=== PATIENT | male | born 1990 | race Caucasian/White ===

== ENCOUNTER 2022-04-06 02:21 | Emergency (ER) | payer BC, SELFPAY ==
[2022-04-06 02:23] VITALS: BP 134/58; PULSE 88; RESP 16; TEMP 36.8; O2SAT 100; BMI 28.3
--- NOTE | 2022-04-06 03:12 | HMH.EDGENADL ---
Discharge Plan Disposition Patient Disposition: Home, Self-Care Prescriptions Prescriptions: New prednisone [prednisone] 20 mg tablet 20 mg PO BID Qty: 10 0RF Referrals Follow up/Referrals: Provider,Referral, MD [Primary Care Provider] - See instructions Clinical Impressions Clinical Impression: Lumbar radicular syndrome Instructions Patient Instructions: DI for Lumbar Radiculopathy Discharge ED Provider: oKko Nelson General Adult HPI General Chief complaint: PAIN Stated complaint: Lower Right side pain Time Seen by Provider: 04/06/22 03:12 Mode of Arrival: Wheelchair Source of Information: Patient and Medical Record Limitations: No Limitations Description of Symptoms (Recalled from ER Triage Doc. by RN): pt has sciatic pain that he has been treated for at work. when the pt got home from work he got out of his truck and his lower left back popped and pain shot through his leg History of Present Illness HPI narrative: pt has hx of ongoing lumbar radicular pain - being treated at [facility] - pt with sudden pain back and rt lower leg tonight - no cauda equina sx Onset (ago): hour(s) Location: back Radiation: extremity Severity: moderate Quality: sharp Consistency: intermittent Associated symptoms: denies other symptoms Treatments prior to arrival: NSAID Related Data Previous Rx's Medication Instructions Recorded prednisone 20 mg tablet 20 mg PO BID #10 tabs 04/06/22 Allergies Allergy/AdvReac Type Severity Reaction Status Date / Time No Known Allergies Allergy Verified 04/06/22 03:09 [facility] Social History Smoking Status: Never smoker alcohol intake: never current occupational status: employed Travel in the last 8 weeks: None ROS Obtained: Yes All systems reviewed & no additional complaints except as documented Physical Exam General General appearance: alert Head Head exam: normocephalic Eye Eye exam: Present PERRL and EOMI ENT ENT exam: Present mucous membranes moist Neck Neck exam: Present trachea midline Respiratory Respiratory exam: Absent respiratory distress Cardiovascular Cardiovascular exam: Present regular rate Extremities Exam Extremities exam: Absent edema Back Exam Back exam: Present tenderness and straight leg raise (R); Absent vertebral tenderness Neurological Exam Neurological exam: Present alert, oriented X3 and CN II-XII intact Psychiatric Psychiatric exam: Present normal affect Skin Skin exam: Absent rash Medical Decision Making Medical Records Medical records reviewed: Yes I reviewed the patient's medical records. [place] Inquiry Pt receiving controlled substance: No Vital Signs: 04/06/22 02:23 Temperature 98.3 F Temperature Source Oral Pulse Rate [Left] 88 Respiratory Rate 16 Blood Pressure [Right Arm] 134/58 L Blood Pressure Mean [Right Arm] 83 02 Sat by Pulse Oximetry 100 Oxygen Delivery Method Room Air Lab Data Lab results reviewed: Yes I reviewed the patient's lab results. Orders (Tests/Meds): ED MEDICATIONS Generic Name Dose Route Start Last Admin Trade Name Freq PRN Reason Stop Dose Admin Dexamethasone Sodium Phosphate 8 mg 04/06/22 03:15 Dexamethasone 4mg/Ml 5ml Mdv IM 05/06/22 03:14 Q6H MOHINI Discontinued Medications Generic Name Dose Route Start Last Admin Trade Name Freq PRN Reason Stop Dose Admin Ketorolac Tromethamine 60 mg 04/06/22 03:10 Ketorolac 60mg/2ml Vial IM 04/06/22 03:11 ONCE ONE Medical Decision Narrative: pt with acute exacerbation of l/s disc dis - no cauda equina sx- Critical Care Time Critical Care Time Critical Care Time: No Attestation: On 04/06/22, the high probability of a clinically significant, sudden or life threatening deterioration of the following system(s) required my full and direct attention, intervention and personal management. The time I documented below is in addition to time spent performing reported procedures but includes the fo
[2022-04-06 03:42] VITALS: BP 127/71; PULSE 81; RESP 16; TEMP 36.8; O2SAT 100
[2022-04-06 03:49] VITALS: BP 122/56; PULSE 88; RESP 16; TEMP 37.1; O2SAT 98
== END 2022-04-06 03:44 | disposition home or self-care (01) ==
PROVIDERS: Emergency Provider Emergency Medicine
DX: M54.16 Radiculopathy, lumbar region (principal)
CPT/HCPCS: 96372; 99283

== ENCOUNTER → 2023-03-05 11:44 | Outpatient (CLI) | payer BC, SELFPAY ==
--- NOTE | 2023-03-05 11:51 | XR_ITS ---
FINAL REPORT TECHNIQUE: 5 views CLINICAL HISTORY: low back pain, right leg numbness, pain in right hip COMPARISON: None FINDINGS: There is no fracture present. There is no malalignment. There are no significant degenerative changes. IMPRESSION: No acute process. Reviewed, Interpreted and Dictated by Barrie Oliveira MD Transcribed by Ashlyn Casper Authenticated and [facility]
== END ==
PROVIDERS: PCP Nurse Practitioner Family; Visit Provider Nurse Practitioner Family
DX: M54.16 Radiculopathy, lumbar region (principal)
CPT/HCPCS: 72110

== ENCOUNTER → 2023-03-14 09:58 | Outpatient (CLI) | payer BC, SELFPAY ==
--- NOTE | 2023-03-14 10:01 | MR_ITS ---
FINAL REPORT CLINICAL HISTORY: lumbar spine pain with radiculopathy down right leg 17 ml prohance COMPARISON: None FINDINGS: Multiplanar MR imaging of the lumbar spine was performed without and with contrast. On the sagittal T2-weighted images, abnormal decreased signal is seen at L4-5 and L5-S1. There is moderate loss of height at these levels. The vertebral alignment is normal. There is no evidence of fracture. The conus is seen at approximately the L1 level and has an unremarkable appearance. L1-2: No significant canal stenosis or neuroforaminal narrowing is seen. L2-3: No significant canal stenosis or neuroforaminal narrowing is seen. L3-4: No significant canal stenosis or neuroforaminal narrowing is seen. L4-5: Mild diffuse disc bulge. Right posterior lateral disc protrusion with associated annular tear. Moderate right neuroforaminal narrowing. L5-S1: Right paracentral disc protrusion. Moderate compromise right lateral recess. No abnormal contrast enhancement is identified. IMPRESSION: Right posterolateral disc protrusion at L4-5 with annular tear and moderate right neuroforaminal compromise. Right paracentral protrusion at L5-S1 with compromise of the right lateral recess. Reviewed, Interpreted and Dictated by Barrie Oliveira MD Transcribed by Theodora Bolton Authenticated and [facility]
== END ==
LOC: RAD 10:01
PROVIDERS: PCP Nurse Practitioner Family; Visit Provider Nurse Practitioner Family
DX: M54.16 Radiculopathy, lumbar region (principal)
CPT/HCPCS: 72158; 76376; A9576

== ENCOUNTER 2024-04-20 07:56 | Observation (INO) | payer BC, SELFPAY ==
[2024-04-20] VITALS (17 sets, daily range): BP systolic 109–137; BP diastolic 56–88; PULSE 66–94; RESP 15–20; TEMP 36.7–37.1; O2SAT 97–100; BMI 26.6; BMI 26.2
--- NOTE | 2024-04-20 08:12 | PC.NURSE ---
Dr. Barber at BS for pt eval
[2024-04-20] MEDS: LACTATED RINGERS 1000ML 1,000 ML 999 ML IV (08:25)
[2024-04-20] MEDS: PANTOPRAZOLE 40MG VIAL 40 MG IV (08:26)
[2024-04-20] MEDS: ONDANSETRON 4MG/2ML VIAL 4 MG IV ×2 (08:26→21:18)
--- NOTE | 2024-04-20 08:28 | ED_ITS ---
Discharge Plan Disposition Patient Disposition: Admitted Chief Complaint: GI Bleed Prescriptions Prescriptions: No Action acetaminophen [Tylenol Extra Strength] 500 mg tablet 500 mg PO DAILY cyclobenzaprine 10 mg tablet 10 mg PO HS PRN (Reason: muscle spasm) Qty: 30 0RF Referrals Follow up/Referrals: Provider,Referral, MD [Primary Care Provider] - See instructions Clinical Impressions Clinical Impression: Upper gastrointestinal hemorrhage Instructions Patient Instructions: DI for Gastrointestinal Bleeding Print Language Print Language: Polish Discharge ED Provider: Keon Barber General Adult HPI General Chief complaint: GI Bleed Stated complaint: blood in stool headache stomach cramps, ulcer pa Time Seen by Provider: 04/20/24 08:04 Mode of Arrival: Ambulatory Source of Information: Patient Limitations: No Limitations Description of Symptoms (Recalled from ER Triage Doc. by RN): Patient presents to ED with bloody stool for over 1 week. Patient reports he has ulcers in his abdomen that he was dx with in 2018. Patient reports nausea, headache, and stomach cramps. Patient reports pain 6/10 at this time. History of Present Illness HPI narrative: This is a 33-year-old male with a past medical history of peptic ulcer disease complicated by perforation and surgical repair in 2018 who presents with concern for GI bleeding. States that he has had cramping abdominal pain for the last week that has been progressively worsening. States that he started out having melanic stools that have progressed to bright red blood per rectum. States that he believes that he is having another ulcer bleed. States he last followed up with GI 2 years ago and got a colonoscopy/EGD and was noted to have an ulcer. Started on Prilosec around that time however discontinued it and then resumed 2 weeks ago whenever symptoms began. Reports nausea and headache as well. Denies vomiting. Related Data Home Medications ?Medication ?Instructions ?Recorded ?Confirmed acetaminophen 500 mg tablet 500 mg PO DAILY 03/04/23 03/04/23 (Tylenol Extra Strength) Previous Rx's ?Medication ?Instructions ?Recorded cyclobenzaprine 10 mg tablet 10 mg PO HS PRN muscle spasm #30 03/04/23 tabs Allergies Allergy/AdvReac Type Severity Reaction Status Date / Time No Known Allergies Allergy Verified 03/04/23 15:41 [facility] Disclaimer: The information contained in this section may have been updated after the patient was seen, as this information can be updated by other users. Medical History (Updated 04/20/24 @ 09:41 by Keon Barber MD) Ulcer Lumbar radicular syndrome Family History (Updated 03/04/23 @ 15:50 by Urmila Abad CMA) Mother Cancer Hypertension Arthritis Father Hypertension Cancer Heart disease Grandmother Cancer Social History Smoking Status: Never smoker alcohol intake: never current occupational status: employed Travel in the last 8 weeks: None Other Medical History Have you received the Pneumonia Vaccine: No ROS Obtained: Yes All systems reviewed & no additional complaints except as documented Physical Exam General General appearance: alert and in no apparent distress Eye Eye exam: Present normal appearance, PERRL and EOMI Respiratory Respiratory exam: Present normal lung sounds bilaterally; Absent respiratory distress Cardiovascular Cardiovascular exam: Present regular rate and normal rhythm Abdominal Exam Abdominal exam: Present soft and distention; Absent tenderness, guarding or rebound Comment: Midline surgical incision Extremities Exam Extremities exam: Present normal inspection Neurological Exam Neurological exam: Present alert and oriented X3 Skin Skin exam: Present warm and dry Medical Decision Making Medical Records Medical records reviewed: Yes I reviewed the patient's medical records. Screening: Per USPSTF and CDC recommendations, given the prevalence of disease in our region, it is our hospital?s policy to screen for HIV and viral Hepatitis for all patients aged 18 and over and those with ongoing risk factors. [place] Inquiry Pt receiving controlled substance: No Vital Signs: 04/20/24 07:58 04/20/24 08:31 Temperature 98.8 F Temperature Source Oral Pulse Rate 91 H Pulse Rate [Right Brachial] 94 H Respiratory Rate 20 Blood Pressure 109/73 L Blood Pressure [Right Arm] 137/88 Blood Pressure Mean [Right Arm] 104 Blood Pressure Source [Right Arm] Automatic Cuff Blood Pressure Position [Right Arm] Supine 02 Sat by Pulse Oximetry 99 97 Oxygen Delivery Method Room Air Room Air Lab Data Lab Results 04/20/24 08:09: WBC 10.6, RBC 5.46, Hgb 16.1, Hct 47.5, MCV 87.0, MCH 29.5, MCHC 33.9, RDW 13.7, Plt Count 265, MPV 7.3 L, Neut % (Auto) 75.3, Lymph % (Auto) 17.2, [place] % (Auto) 6.4, Eos % (Auto) 0.9, Baso % (Auto) 0.3, Neut # (Auto) 8.0 H, Lymph # (Auto) 1.8, [place] # (Auto) 0.7, Eos # (Auto) 0.1, Baso # (Auto) 0.0, PT 11.1, INR 0.99, Sodium 137, Potassium 3.9, Chloride 95 L, Carbon Dioxide 36 H , Anion Gap 9.9, BUN 19, Creatinine 1.00, Estimated Creat Clear 117, Estimated GFR 87, Est GFR ( Amer) 105, Glucose 103 H, Calcium 9.7, Total Bilirubin 0.7, AST 27, ALT 21, Alkaline Phosphatase 62, Total Protein 7.4, Albumin 4.6, Globulin 2.8, Albumin/Globulin Ratio 1.6, Lipase 68 04/20/24 08:22: Lactate 0.6 L 04/20/24 08:09 04/20/24 08:09 Orders (Tests/Meds): ED MEDICATIONS Generic Name Dose Route Start Last Admin Trade Name Freq PRN Reason Stop Dose Admin Sodium Chloride 10 ml 04/20/24 08:12 Sodium Chloride 0.9% 10ml Flush Syringe IV 05/20/24 08:11 NEEDED PRN Maintain IV Site Discontinued Medications Generic Name Dose Route Start Last Admin Trade Name Freq PRN Reason Stop Dose Admin Pantoprazole Sodium 40 mg/ 100 mls @ 100 mls/hr 04/20/24 08:19 04/20/24 08:26 Sodium Chloride IV 04/20/24 09:18 Not Given ONCE ONE Lactated Ringer's 1,000 mls @ 999 mls/hr 04/20/24 08:19 04/20/24 08:25 Lactated Ringer's 1000 Ml Bag IV 04/20/24 09:19 999 mls/hr .Q1H1M ONE Administration Ondansetron HCl 4 mg 04/20/24 08:19 04/20/24 08:26 Ondansetron 4mg/2ml Vial IV 04/20/24 08:20 4 mg ONCE ONE Administration Pantoprazole Sodium 40 mg 04/20/24 08:30 04/20/24 08:26 Pantoprazole 40mg Vial IV 04/20/24 08:31 40 mg ONCE ONE Administration ORDERS Category Date Time Status CBC w/Auto Diff [Complete Blood Count Auto Diff] Stat Lab 04/20/24 08:09 Completed CMP [Comprehensive Metabolic Panel] Stat Lab 04/20/24 08:09 Completed HIV (1&2) Antibody Rapid Stat Lab 04/20/24 08:09 Received Hep C Ab with Reflex to RNA Stat Lab 04/20/24 08:09 Received Lactic Acid Stat Lab 04/20/24 08:22 Completed Lipase Stat Lab 04/20/24 08:09 Completed PT/INR [Prothrombin Time INR] Stat Lab 04/20/24 08:09 Completed Medical Decision Narrative: In summary, this 33-year-old male with a past medical history of peptic ulcer disease complicated by perforation in 2018 s/p surgical repair presents to the emergency department today with abdominal pain and bloody stools. On initial evaluation patient is afebrile, nontachycardic, normotensive, no acute distress with a benign abdominal exam. Differential diagnosis includes but is not limited to peptic ulcer disease, diverticulitis, diverticulosis, perforation. Low clinical concern for perforation given benign abdominal exam. Based on these concerns, I ordered CBC, CMP, PT/INR, lipase, lactate. Patient received Protonix and Zofran with 1 L of lactated Ringer's for treatment. Labs personally reviewed demonstrate normal hemoglobin, normal BUN, normal lipase and lactate. GBS score 4. I had an interactive discussion with GI who wished to perform EGD today. Discussed this with hospitalist who was agreed with admission and scope. Patient n.p.o. since last night. HDS in ED w/ no witnessed GIB. Critical Care Critical Care Time Critical Care Time: No
[2024-04-20 08:30] LABS: Albumin Level 4.6 g/dl (3.5-5.0); Basophils % 0.3 % (0.1-2.0); Chloride 95 mmol/L (98-107); Eosinophils # 0.1 K/mm3 (0.0-0.4); Eosinophils % 0.9 % (0.1-12.0); Hematocrit 47.5 % (42.0-52.0); Hemoglobin 16.1 g/dL (14.1-18.0); Lymphocytes # 1.8 K/mm3 (0.7-4.5); Lymphocytes % 17.2 % (10-50); Mean Corpuscular HGB Conc 33.9 g/dL (31.8-35.4); Mean Corpuscular Hemoglobin 29.5 pg (27.0-31.2); Mean Platelet Volume 7.3 fl (7.4-10.4); Monocytes # 0.7 K/mm3 (0.1-1.0); Monocytes % 6.4 % (1.7-9.3); Neutrophils % 75.3 % (37.0-80.0); Platelet Count 265 K/mm3 (142-424); Potassium 3.9 mmoL/L (3.5-5.1); Red Blood Count 5.46 M/mm3 (4.60-6.20); Red Cell Distribution Width 13.7 % (11.5-17.5); Sodium 137 mmol/L (136-145); White Blood Count 10.6 K/mm3 (4.8-10.8)
[2024-04-20 08:33] LABS: Alanine Aminotransferase 21 U/L (12-78); Albumin/Globulin Ratio 1.6 (1.1-1.8); Alkaline Phosphatase 62 U/L (38-126); Anion Gap 9.9 mEq/L (5-15); Aspartate Amino Transferase 27 U/L (17-59); Bilirubin,Total 0.7 mg/dl (0.2-1.3); Blood Urea Nitrogen 19 mg/dl (9-20); Calcium 9.7 mg/dl (8.4-10.2); Carbon Dioxide 36 mmol/L (22.0-30.0); Creatinine Clearance Estimated 117 mL/min (50-200); Estimated Glomerular Filt Rate 87 ml/min (>60); GFR (African American) 105 ML/MIN (>60); Globulin 2.8 g/dL (1.3-3.2); Glucose 103 mg/dl (74-100); Lipase 68 U/L (23-300); Total Protein,Serum 7.4 g/dl (6.3-8.2)
[2024-04-20 08:35] LABS: INR 0.99 (0.9-1.1); Prothrombin Time 11.1 seconds (10.1-12.5)
[2024-04-20 08:58] LABS: Lactic Acid 0.6 mmol/L (0.7-2.1)
--- NOTE | 2024-04-20 09:11 | PC.NURSE ---
NOTIFIED GI OF CONSULT
--- NOTE | 2024-04-20 09:15 | PC.NURSE ---
Dr. Barber speaking with GI
--- NOTE | 2024-04-20 09:35 | PC.NURSE ---
Dr. Barber at bedside for pt update
--- NOTE | 2024-04-20 09:35 | PC.NURSE ---
DR PARK AT BEDSIDE TO UPDATE PT
--- NOTE | 2024-04-20 09:37 | PC.NURSE ---
DR PARK SPEAKING WITH HOSPITALIST
--- NOTE | 2024-04-20 10:10 | P.PNANES_ITS ---
[facility] Disclaimer: The information contained in this section may have been updated after the patient was seen, as this information can be updated by other users. Medical History (Updated 04/20/24 @ 09:41 by Keon Barber MD) Ulcer Lumbar radicular syndrome Family History (Updated 03/04/23 @ 15:50 by Urmila Abad CMA) Mother Cancer Hypertension Arthritis Father Hypertension Cancer Heart disease Grandmother Cancer Social History Smoking Status: Never smoker alcohol intake: never substance use type: denies use current occupational status: employed Travel in the last 8 weeks: None [facility] Anesthesia Checklist Patient Identification Patient Identification: Arm Band Structural Data Admitted From: Home Planned Operative Procedure/s: EGD Consent for Planned Operative Procedure(s) Verified: Yes Verified Documents: Surgical Consent and History and Physical NPO Status Verified Time NPO: 00:00 Additional verifications Anesthesia Reactions: No Airway Assessment Mallampati Score:: Class II C-Spine Mobility Assessed: Yes TMJ Mobility Assessed: Yes Dentition: Good Dentition Neurological Assessment Level of Consciousness: Awake, Alert and Appropriate Anesthesia Plan Anesthesia Risk discussed: Yes Anesthesia Plan: Verified ASA Class: II Anesthesia Type: MAC
--- NOTE | 2024-04-20 10:19 | EXP.HP ---
History of Present Illness *Admission Date: 04/20/24 *Reason for visit:: GI bleed *History of present illness: Mr. Lopez is a 33-year-old gentleman with GI bleeding who is here for admission/EGD. The examination is deemed medically necessary for EGD. The patient has been seen, interviewed and examined prior to the procedure by both myself and the anesthesia provider. [facility] Disclaimer: The information contained in this section may have been updated after the patient was seen, as this information can be updated by other users. Medical History (Updated 04/20/24 @ 10:20 by Jaguar Bains II, MD) Ulcer Lumbar radicular syndrome Family History (Updated 03/04/23 @ 15:50 by Urmila Abad [facility]) Mother Cancer Hypertension Arthritis Father Hypertension Cancer Heart disease Grandmother Cancer Social History (Updated 04/20/24 @ 10:10 by Gomez Donis CRNA) Smoking Status: Never smoker alcohol intake: never substance use type: denies use current occupational status: employed Travel in the last 8 weeks: None Other Medical History Have you received the Pneumonia Vaccine: No Review of Systems Review of Systems Review of systems (narrative): Negative *Cardiovascular Comments: Negative *Gastrointestinal Comments: Negative *Genitourinary Comments: Negative *Musculoskeletal Comments: Negative *Neurologic Comments: Negative Meds Home Medications and Allergies New Prescriptions to Start Prescriptions: Allergies Allergy/AdvReac Type Severity Reaction Status Date / Time No Known Allergies Allergy Verified 03/04/23 15:41 Exam Data for Last 24 hours Vital signs and Labs for Last 24 Hours: Temp Pulse Resp BP Pulse Ox O2 Del Method 98.8 F 84 18 118/78 99 Room Air 04/20/24 09:53 04/20/24 09:53 04/20/24 09:53 04/20/24 09:53 04/20/24 09:30 04/20/24 09:53 Laboratory Results - last 24 hr 04/20/24 08:09: WBC 10.6, RBC 5.46, Hgb 16.1, Hct 47.5, MCV 87.0, MCH 29.5, MCHC 33.9, RDW 13.7, Plt Count 265, MPV 7.3 L, Neut % (Auto) 75.3, Lymph % (Auto) 17.2, [place] % (Auto) 6.4, Eos % (Auto) 0.9, Baso % (Auto) 0.3, Neut # (Auto) 8.0 H, Lymph # (Auto) 1.8, [place] # (Auto) 0.7, Eos # (Auto) 0.1, Baso # (Auto) 0.0, PT 11.1, INR 0.99, Sodium 137, Potassium 3.9, Chloride 95 L, Carbon Dioxide 36 H, Anion Gap 9.9, BUN 19, Creatinine 1.00, Estimated Creat Clear 117, Estimated GFR 87, Est GFR ( Amer) 105, Glucose 103 H, Calcium 9.7, Total Bilirubin 0.7, AST 27, ALT 21, Alkaline Phosphatase 62, Total Protein 7.4, Albumin 4.6, Globulin 2.8, Albumin/Globulin Ratio 1.6, Lipase 68 04/20/24 08:22: Lactate 0.6 L I & O for Last 24 hours: Intake & Output 04/17/24 04/18/24 04/19/24 04/20/24 23:59 23:59 23:59 23:59 Weight 170 lb *Routine HEENT Exam Head: Present normocephalic Eye: Present EOMI and PERRL ENT: Present mucous membranes moist *Routine Neck Exam Neck: Present supple *Routine Respiratory Exam Respiratory: Present CTA bilaterally *Routine Cardiovascular Exam Cardiovascular: Present RRR *Routine Abdominal Exam Abdominal: Present soft and normoactive bowel sounds; Absent tenderness *Routine Rectal Exam Rectal:: deferred *Routine Genitalia Exam Genitalia:: deferred *Routine Extremities Exam Extremities: Absent cyanosis, clubbing or edema *Routine Skin Exam Skin: Present warm; Absent rash *Routine Neurological Exam Neurological: Present alert and oriented X3 Assessment and Plan *Assessment and plan (1) Upper gastrointestinal hemorrhage: Status: Acute Category: Medical Code(s): K92.2 - Gastrointestinal hemorrhage, unspecified (2) Bright red blood per rectum: Status: Acute Category: Medical Code(s): K62.5 - Hemorrhage of anus and rectum (3) Melena: Status: Acute Category: Medical Code(s): K92.1 - Melena Plan A/P: 1. GI bleeding is the preprocedural diagnosis. The patient will be anesthetized/sedated using MAC sedation. The patient has been seen and examined. Cardiac and lung assessment prior to the examination is stable. Proceed with planned EGD
--- NOTE | 2024-04-20 10:28 | HMH.PROCNOTE ---
[facility] Procedure Note Date: 04/20/24 Time: 10:28 Procedure Note:: Upper Endoscopy Procedure Report: Esophagogastroduodenoscopy with cold biopsies Endoscopost: Jaguar Bains II, MD Referring Physician: None Date of Procedure: April 20, 2024 Equipment: Olympus GIF 190 standard upper endoscope Sedation: MAC sedation Indications: Mr. Lopez is a 33-year-old gentleman who presents with bright red blood per rectum. He does state that he had melena a couple of weeks ago. He has had the bright red blood daily. His hemoglobin and hematocrit today were 16.1 and 47.5. He does have a prior history of a perforated peptic ulcer in 2018 and had surgery in [place] (Deon Tyson MD). He was diagnosed with H. pylori and treated. The patient has had increasing crampy abdominal discomfort in the epigastrium and lower quadrants. He does have chronic longstanding constipation. He has had more bloating, nausea and early satiety. Based upon the symptoms, he comes in with concern about recurrence of the ulcer. The patient did have panendoscopy by Dr. Dedrick Ramos 2 years ago. The patient does take acetaminophen and states that he has not been taking NSAIDs. Procedure: Prior to the procedure, a history and physical exam was performed, and patient's medications and allergies were reviewed. The risks, benefits and alternatives of the sedation and procedure were discussed with the patient. All questions were answered and informed consent was obtained. The patient was brought to the procedure room. Patient identification and proposed procedure were verified by the physician and the nurse. The patient was placed in a left lateral decubitus position and the scope was passed under direct vision. Throughout the procedure, the patient's blood pressure, pulse, and oxygen saturations were monitored continuously. The upper GI endoscopy was accomplished without difficulty. The patient tolerated the procedure well. Findings: The scope was passed directly into the upper esophagus and advanced to the third portion of the duodenum. The post bulbar duodenum, ampulla and duodenal bulb were normal with normal mucosa and conniventes. Biopsies were taken from the first portion of the duodenum to rule out celiac. The scope was withdrawn through a normal duodenal bulb and pylorus into the stomach. There was bile reflux with moderate linear reactive gastropathy of the antrum. There was a superficial gastric ulceration that was approximately 6 mm in width and 3 mm in length (very small) which was shallow and without any visible vessel or stigmata. The ulcer was very clean-based. The remainder of the body and fundus of the stomach were normal. Upon retroflexion there was no hiatal hernia. Biopsies were taken from the antrum and lesser curvature to rule out H. pylori. The scope was then withdrawn into the esophagus. There was no evidence of reflux esophagitis or Madison's. There was a small polypoid 3 to 4 mm lesion in the distal esophagus (possible squamous papilloma) which was removed via cold biopsies. The remainder of the esophageal mucosa was normal. Impression: 1. Small superficial antral gastric ulceration?suspect NSAID injury?clean-based with no stigmata 2. Bile reflux with mild to moderate reactive gastropathy of antrum 3. Small distal esophageal squamous tag?rule out squamous papilloma Plan: I will follow-up the biopsies. The patient has not had any significant drop in hemoglobin. I do feel that his bright red blood is lower digestive tract and possibly internal hemorrhoids. I would recommend colonoscopy to assess further with possible hemorrhoid ablation/or banding. The patient does have some chronic dyspepsia and obstipation. We will address this as well. At this point, he needs to avoid NSAIDs.
[2024-04-20 10:52] LABS: HIV (1&2) Antibody Rapid NONREACTIVE (NONREACTIVE)
--- NOTE | 2024-04-20 11:26 | SUR.PHASEII ---
REPORT CALLED TO Lion CHIU RN @ 1251. ROOM IS NOT CLEAN AT THIS TIME, AWAITING CALL BACK BEFORE TRANSFERRING PT TO FLOOR.
[2024-04-20] MEDS: ACETAMINOPHEN 325MG TAB 650 MG PO ×2 (13:49→20:08)
--- NOTE | 2024-04-20 18:46 | PC.NURSE ---
pt has done well since coming to floor. vss, alert, no pain except a headache treated per mar with relief. no bm but knows to notify nursing is he does and it appears to have blood in it. pts colonoscopy is scheduled for tomorrow at 1330, pt is aware. no concerns at this time.
--- NOTE | 2024-04-20 19:31 | P.HP_ITS ---
History of Present Illness *Admission Date: 04/20/24 *History of present illness: Mr. Donte Lopez is a 33 year old male with a medical history significant for bleeding PUD, IBS presents with 1 week onset of melena, and one day of BRBPR. He denies NSAIDS, alcohol. He states he's been having on an off dark stools for many years, but this week it's been nearly every day. Only restarted his Prilosec this week. Workup in the ED significant for Hgb 16, BUN 19. Vitals stable. Dr. Bains with GI was consulted by ED and agreed to perform EGD. Case was discussed with ED provider and decision was made to admit patient for stable GI bleed. [facility] Disclaimer: The information contained in this section may have been updated after the patient was seen, as this information can be updated by other users. Medical History (Updated 04/21/24 @ 01:10 by Raymond Coats MD) Ulcer Lumbar radicular syndrome Family History (Updated 03/04/23 @ 15:50 by Urmila Abad CMA) Mother Cancer Hypertension Arthritis Father Hypertension Cancer Heart disease Grandmother Cancer Social History (Updated 04/20/24 @ 10:10 by Gomez Donis CRNA) Smoking Status: Never smoker alcohol intake: never substance use type: denies use current occupational status: employed Travel in the last 8 weeks: None Other Medical History Have you received the Flu Vaccine for this season: No Have you received the Pneumonia Vaccine: No Meds Home Medications and Allergies Home Medications ?Medication ?Instructions ?Recorded ?Confirmed ?Type omeprazole 20 mg tablet,delayed 20 mg PO DAILY 04/20/24 04/20/24 History release New Prescriptions to Start Prescriptions: Allergies Allergy/AdvReac Type Severity Reaction Status Date / Time No Known Allergies Allergy Verified 03/04/23 15:41 Exam Data for Last 24 hours Vital signs and Labs for Last 24 Hours: Temp Pulse Resp BP Pulse Ox O2 Del Method O2 Flow Rate 98.0 F 66 18 125/75 99 Room Air 5 04/20/24 16:00 04/20/24 18:00 04/20/24 18:00 04/20/24 18:00 04/20/24 18:00 04/20/24 18:45 04/20/24 10:07 Laboratory Results - last 24 hr 04/20/24 08:09: WBC 10.6, RBC 5.46, Hgb 16.1, Hct 47.5, MCV 87.0, MCH 29.5, MCHC 33.9, RDW 13.7, Plt Count 265, MPV 7.3 L, Neut % (Auto) 75.3, Lymph % (Auto) 17. 2, [place] % (Auto) 6.4, Eos % (Auto) 0.9, Baso % (Auto) 0.3, Neut # (Auto) 8.0 H, Lymph # (Auto) 1.8, [place] # (Auto) 0.7, Eos # (Auto) 0.1, Baso # (Auto) 0.0, PT 11.1, INR 0.99, Sodium 137, Potassium 3.9, Chloride 95 L, Carbon Dioxide 36 H, Anion Gap 9.9, BUN 19, Creatinine 1.00, Estimated Creat Clear 117, Estimated GFR 87, Est GFR ( Amer) 105, Glucose 103 H, Calcium 9.7, Total Bilirubin 0.7, AST 27, ALT 21, Alkaline Phosphatase 62, Total Protein 7.4, Albumin 4.6, Globulin 2.8, Albumin/Globulin Ratio 1.6, Lipase 68, HIV 1&2 Antibody Rapid Nonreactive 04/20/24 08:22: Lactate 0.6 L I & O for Last 24 hours: Intake & Output 04/17/24 04/18/24 04/19/24 04/20/24 23:59 23:59 23:59 23:59 Intake Total 480 / 480 Balance 480 / 480 Weight 75.977 kg Constitutional Constitutional: no acute distress *Routine HEENT Exam Head: Present normocephalic Eye: Present EOMI and PERRL ENT: Present mucous membranes moist *Routine Neck Exam Neck: Present supple; Absent lymphadenopathy *Routine Respiratory Exam Respiratory: Present CTA bilaterally *Routine Cardiovascular Exam Cardiovascular: Present RRR *Routine Abdominal Exam Abdominal: Present soft, normoactive bowel sounds and tenderness Comments: Mild epigastric tenderness. *Routine Rectal Exam Rectal:: deferred *Routine Genitalia Exam Genitalia:: deferred *Routine Extremities Exam Extremities: Absent cyanosis, clubbing or edema *Routine Skin Exam Skin: Present warm; Absent rash *Routine Neurological Exam Neurological: Present alert and oriented X3 Assessment and Plan *Assessment and plan (1) Melena: Status: Acute Category: Medical Code(s): K92.1 - Melena (2) Bright red blood per rectum: Status: Acute Category: Medical Code(s): K62.5 - Hemorrhage of anus and rectum (3) PUD (peptic ulcer disease): Status: Acute Category: Medical Code(s): K27.9 - Peptic ulcer, site unspecified, unspecified as acute or chronic, without hemorrhage or perforation Plan Mr. Donte Lopez is a 33 year old male with a medical history significant for bleeding PUD, IBS presents with 1 week onset of melena, and one day of BRBPR. He denies NSAIDS, alcohol. He states he's been having on an off dark stools for many years, but this week it's been nearly every day. Only restarted his Prilosec this week. Workup in the ED significant for Hgb 16, BUN 19. Vitals stable. Dr. Bains with GI was consulted by ED and agreed to perform EGD. Case was discussed with ED provider and decision was made to admit patient for stable GI bleed. #Melena #Bright red blood per rectum #H/o PUD - EGD 04/20/24 showed Small superficial antral gastric ulceration without active bleed, moderate reactive gastropathy of antrum, Small distal esophageal squamous tag. - Spoke with Dr. Bains, and given patient's BRBPR he will performed colonscopy tomorrow morning. - Given Golytely for bowel prep. NPO at midnight. - Hgb 16 with no futher episodes of bleeding. - Protonix 40mg . - Anticipate discharge after colonoscopy tomorrow.
[2024-04-20] MEDS: PANTOPRAZOLE 40MG TABLET 40 MG PO (20:08)
[2024-04-20] MEDS: MAGNESIUM CITRATE 10OZ BOTTLE 10 OZ PO (20:09)
[2024-04-20] MEDS: PEG-ELECTROLYTE SOLN 4000ML BOTTLE 4000 ML PO (20:09)
[2024-04-21] VITALS (12 sets, daily range): BP systolic 106–131; BP diastolic 58–80; PULSE 67–99; RESP 16–19; TEMP 36.5–37.3; O2SAT 94–99; BMI 26.8
[2024-04-21 06:13] LABS: HCV Ab Non Reactive (Non Reactive)
[2024-04-21 06:50] LABS: Basophils % 0.3 % (0.1-2.0); Eosinophils # 0.1 K/mm3 (0.0-0.4); Eosinophils % 0.7 % (0.1-12.0); Hematocrit 44.1 % (42.0-52.0); Hemoglobin 15.1 g/dL (14.1-18.0); Lymphocytes # 1.4 K/mm3 (0.7-4.5); Lymphocytes % 13.9 % (10-50); Mean Corpuscular HGB Conc 34.3 g/dL (31.8-35.4); Mean Corpuscular Hemoglobin 29.3 pg (27.0-31.2); Mean Corpuscular Volume 85.5 fl (80-94); Mean Platelet Volume 7.3 fl (7.4-10.4); Monocytes # 0.7 K/mm3 (0.1-1.0); Monocytes % 6.5 % (1.7-9.3); Neutrophils # 7.9 K/mm3 (1.8-7.8); Neutrophils % 78.6 % (37.0-80.0); Platelet Count 212 K/mm3 (142-424); Red Blood Count 5.16 M/mm3 (4.60-6.20); Red Cell Distribution Width 13.8 % (11.5-17.5); White Blood Count 10.1 K/mm3 (4.8-10.8)
[2024-04-21 07:01] LABS: Albumin Level 3.9 g/dl (3.5-5.0); Chloride 96 mmol/L (98-107); Sodium 136 mmol/L (136-145)
[2024-04-21 07:02] LABS: Potassium 4.3 mmoL/L (3.5-5.1)
[2024-04-21 07:04] LABS: Alanine Aminotransferase 15 U/L (12-78); Albumin/Globulin Ratio 1.5 (1.1-1.8); Alkaline Phosphatase 65 U/L (38-126); Anion Gap 9.3 mEq/L (5-15); Aspartate Amino Transferase 20 U/L (17-59); Bilirubin,Total 0.7 mg/dl (0.2-1.3); Blood Urea Nitrogen 12 mg/dl (9-20); Carbon Dioxide 35 mmol/L (22.0-30.0); Creatinine Clearance Estimated 107 mL/min (50-200); Estimated Glomerular Filt Rate 78 ml/min (>60); GFR (African American) 94 ML/MIN (>60); Globulin 2.6 g/dL (1.3-3.2); Total Protein,Serum 6.5 g/dl (6.3-8.2)
[2024-04-21 07:05] LABS: Calcium 9.3 mg/dl (8.4-10.2); Glucose 87 mg/dl (74-100)
--- NOTE | 2024-04-21 10:27 | P.PNANES_ITS ---
[facility] Disclaimer: The information contained in this section may have been updated after the patient was seen, as this information can be updated by other users. Medical History (Updated 04/21/24 @ 01:10 by Raymond Coats MD) Ulcer Lumbar radicular syndrome Family History (Updated 03/04/23 @ 15:50 by Urmila Abad CMA) Mother Cancer Hypertension Arthritis Father Hypertension Cancer Heart disease Grandmother Cancer Social History (Updated 04/20/24 @ 10:10 by Gomez Donis CRNA) Smoking Status: Never smoker alcohol intake: never substance use type: denies use current occupational status: employed Travel in the last 8 weeks: None [facility] Anesthesia Checklist Patient Identification Patient Identification: Arm Band Structural Data Admitted From: Inpatient Planned Operative Procedure/s: Colonoscopy Consent for Planned Operative Procedure(s) Verified: Yes Verified Documents: Surgical Consent and History and Physical NPO Status Verified Time NPO: 00:00 Additional verifications Anesthesia Reactions: No Airway Assessment Mallampati Score:: Class II C-Spine Mobility Assessed: Yes TMJ Mobility Assessed: Yes Dentition: Good Dentition Neurological Assessment Level of Consciousness: Awake, Alert and Appropriate Anesthesia Plan Anesthesia Risk discussed: Yes Anesthesia Plan: Verified ASA Class: II Anesthesia Type: MAC
--- NOTE | 2024-04-21 10:59 | P.PCN_ITS ---
[facility] Procedure Note Date: 04/21/24 Time: 10:59 Procedure Note:: Colonoscopy Procedure Report: Colonoscopy with cold biopsies Endoscopist: Jaguar Bains II, MD Referring physician: None Date of Procedure: April 21, 2024 Equipment: Olympus 190 variable stiffness pediatric colonoscope Sedation: MAC sedation Indication: Mr. Lopez is a 33-year-old gentleman who is here for diagnostic evaluation of his bright red rectal bleeding. He has had crampy lower abdominal discomfort and some alternating bowel function with loose stools and some tenesmus. He has had bloating and fullness. He did have peptic ulcer disease and 2018 with perforation and had primary surgical oversew of the ulcer. He had aguiar endoscopy [address] Dedrick Ramos. He states that he had an ulcer at that time. He had an EGD with me yesterday that showed a very small superficial clean-based prepyloric ulcer but this was not deemed to be causing his bright red rectal bleeding. He reports no NSAID use. His hemoglobin and hematocrit were 15.1 and 44.1. Procedure: Prior to the procedure, a history and physical exam was performed, and patient's medications and allergies were reviewed. The risks, benefits and alternatives of the sedation and procedure were discussed with the patient. All questions were answered and informed consent was obtained. The patient was brought to the procedure room. Patient identification and proposed procedure were verified by the physician and the nurse. The patient was placed in a left lateral decubitus position and the scope was passed under direct vision. Throughout the procedure, the patient's blood pressure, pulse, and oxygen saturations were monitored continuously. The colonoscopy was accomplished without difficulty. The patient tolerated the procedure well. Findings: On digital rectal examination there was normal rectal tone there were no external hemorrhoids. The scope was then inserted through the anal canal to the rectum and advanced to the cecum. The ileocecal valve and appendiceal orifice were identified. The scope was advanced a short distance into the terminal ileum which appeared grossly normal the scope was then withdrawn into the colon. There was evidence of patchy edema/erythema (cecal patch) with focal colitis of the cecum. There was more moderate to marked colitis involving the descending, sigmoid and rectum. There was mucosal erythema, edema, granularity, spontaneous heme and loss of vascularity. There was evidence of pancolitis but there was more severe colitis identified in the left colon. Biopsies were obtained from both the left and right colon separately. This extended to the rectum. There was some cobblestoning and pseudomembranes throughout. Impression: 1. Moderate pancolitis/proctocolitis (pancolitis with more marked changes identified in the left colon/rectum)?rule out acute self-limited colitis (microbial/pathogenic) versus IBD Plan: I am going to obtain stool panel for PCR and fecal calprotectin. If he does have C. difficile, we will need to initiate treatment. Even if the stool panel is negative this could still represent acute self-limited colitis. However, I would like to do serologic testing (IBD serologies with P ANCA and ASCA). I will likely place him on mesalamine and have him follow-up in the office within the next 1 to 2 weeks. I will follow-up the biopsies.
[2024-04-21 11:57] LABS: C-Reactive Protein 17.3 mg/L (0-4)
[2024-04-21 12:18] LABS: Erythrocyte Sedimentation Rate 4 mm/hr (0-15)
[2024-04-21] MEDS: MESALAMINE 800MG TABLET DR 1600 MG PO ×2 (13:13→20:54)
[2024-04-21] MEDS: DICYCLOMINE 10MG CAPSULE 10 MG PO ×2 (13:14→20:54)
--- NOTE | 2024-04-21 18:33 | EXP.ACUTE.PN ---
Subjective *Date: 04/21/24 *Time: 12:16 Interval history: On initial eval, patient had gone to have his scope. Was back by team rounds. Feeling better. No nausea or vomiting. Denies any further bloody bowel movements. Stable on room air. Okay to advance diet. Medical Exam Vital signs and Labs for Last 24 Hours: Vital Signs Temp Pulse Resp BP Pulse Ox O2 Del Method O2 Flow Rate 04/21/24 18:10 Room Air 04/21/24 17:00 Room Air 04/21/24 16:00 97.8 F 99 H 19 128/60 95 Room Air 04/21/24 15:00 97.9 F 79 18 120/68 98 Room Air 04/21/24 15:00 Room Air 04/21/24 14:00 98.2 F 85 18 116/65 97 Room Air 04/21/24 13:00 98.0 F 71 18 118/64 98 Room Air 04/21/24 13:00 Room Air 04/21/24 12:00 98.5 F 77 18 119/80 97 Room Air 04/21/24 11:00 98.1 F 83 18 115/68 98 Room Air 04/21/24 11:00 Room Air 04/21/24 10:53 67 17 117/67 94 L Room Air 04/21/24 10:38 Nasal Cannula 4 04/21/24 09:00 Room Air 04/21/24 08:00 Room Air 04/21/24 08:00 97.7 F 85 19 131/74 97 Room Air 04/21/24 06:27 Room Air 04/21/24 05:00 Room Air 04/21/24 04:00 98.1 F 80 16 114/70 96 Room Air 04/21/24 03:00 Room Air 04/21/24 01:00 Room Air 04/21/24 00:00 97.9 F 68 16 111/67 95 Room Air 04/20/24 23:00 Room Air 04/20/24 21:00 Room Air 04/20/24 20:00 Room Air 04/20/24 20:00 98.4 F 66 16 112/66 97 Room Air 04/20/24 18:45 Room Air Intake and Output 04/21/24 04/21/24 04/21/24 07:59 15:59 23:59 Intake Total 540 / 900 360 / 900 Output Total 0 / 0 0 / 0 0 / 0 Balance 0 / 900 540 / 900 360 / 900 Intake: Intake, Oral Amount 540 / 900 360 / 900 Output: Output, Urine Amount 0 / 0 0 / 0 0 / 0 Other: Number of Voids 0 0 Number of Unmeasured Voids 1 3 Number of Bowel Movements 1 Weight 77.428 kg Patient Weight 04/21/24 23:59 Weight 77.428 kg Laboratory Results - last 24 hr 04/20/24 08:09: Hepatitis C Antibody Non reactive 04/21/24 05:42: WBC 10.1, RBC 5.16, Hgb 15.1, Hct 44.1, MCV 85.5, MCH 29.3, MCHC 34.3, RDW 13.8, Plt Count 212, MPV 7.3 L, Neut % (Auto) 78.6, Lymph % (Auto) 13.9, [place] % (Auto) 6.5, Eos % (Auto) 0.7, Baso % (Auto) 0.3, Neut # (Auto) 7.9 H, Lymph # (Auto) 1.4, [place] # (Auto) 0.7, Eos # (Auto) 0.1, Baso # (Auto) 0.0, Sodium 136, Potassium 4.3, Chloride 96 L, Carbon Dioxide 35 H, Anion Gap 9.3, BUN 12 D, Creatinine 1.10, Estimated Creat Clear 107, Estimated GFR 78, Est GFR ( Amer) 94, Glucose 87, Calcium 9.3, Total Bilirubin 0.7, AST 20 D, ALT 15 D, Alkaline Phosphatase 65, Total Protein 6.5, Albumin 3.9 D, Globulin 2.6, Albumin/Globulin Ratio 1.5 04/21/24 11:23: ESR 4, C-Reactive Protein 17.3 H I & O for Labs for Last 24 Hours: Intake & Output 04/18/24 04/19/24 04/20/24 04/21/24 23:59 23:59 23:59 23:59 Intake Total 1100 / 1100 900 / 900 Output Total 0 / 0 0 / 0 Balance 1100 / 1100 900 / 900 Weight 75.977 kg 77.428 kg Constitutional: Present no acute distress, average body habitus and cooperative Head: Present atraumatic and normocephalic ENT: Present normal exam Respiratory: Present normal respiratory effort; Absent rhonchi, wheezes or crackles Cardiac: Present Reg Rate and Rhythm GI: Present soft, tenderness (mild non-focal) and normal bowel sounds; Absent distention Extremities: Present normal inspection and full ROM Skin: Present intact; Absent erythema Neuro: Present Grossly Intact, alert, awake, oriented x 3 and moves all extremities Assessment and Plan *Assessment and plan (1) Pancolitis: Status: Acute Category: Medical Code(s): K51.00 - Ulcerative (chronic) pancolitis without complications (2) Melena: Status: Acute Category: Medical Code(s): K92.1 - Melena (3) Bright red blood per rectum: Status: Acute Category: Medical Code(s): K62.5 - Hemorrhage of anus and rectum (4) PUD (peptic ulcer disease): Status: Acute Category: Medical Code(s): K27.9 - Peptic ulcer, site unspecified, unspecified as acute or chronic, without hemorrhage or perforation Plan Mr. Donte Lopez is a 33 year old male with a medical history significant for bleeding PUD, IBS presents with 1 week onset of melena, and one day of BRBPR. He denies NSAIDS, alcohol. He states he's been having on an off dark stools for many years, but this week it's been nearly every day. Only restarted his Prilosec this week. Workup in the ED significant for Hgb 16, BUN 19. Vitals stable. Dr. Vernon with GI was consulted by ED and agreed to perform EGD. Case was discussed with ED provider and decision was made to admit patient for stable GI bleed. Status post colonoscopy today. Will advance diet. If does well, will discharge tomorrow. Awaiting workup for pancolitis. Problems addressed as follows: # Pancolitis # Melena # Bright red blood per rectum #H/o PUD - EGD 04/20/24 showed Small superficial antral gastric ulceration without active bleed, moderate reactive gastropathy of antrum, Small distal esophageal squamous tag. -Colonoscopy performed this morning. Discussed case with GI. Concern for pancolitis. Pending stool panel to look for infectious etiology such as C. difficile. Concern for IBD however. GI recommends initiating anti-inflammatory treatment for IBD. Stool calprotectin and lactoferrin pending. -Okay to advance diet. Hemoglobin stable at 15. Kidney function normal BUN 12, creatinine 1.1. -Repeat CBC, CMP, magnesium ordered for the morning. - Protonix 40mg daily - ANCA pending - Initiate mesalamine 1600 mg p.o. 3 times a day Full code regular diet
[2024-04-21] MEDS: PANTOPRAZOLE 40MG TABLET 40 MG PO (20:54)
[2024-04-21] MEDS: ACETAMINOPHEN 325MG TAB 650 MG PO (20:54)
[2024-04-22] VITALS: BP 122/72; PULSE 73; RESP 16; TEMP 36.6; O2SAT 98
[2024-04-22 04:00] VITALS: BP 111/72; PULSE 90; RESP 16; TEMP 37.4; O2SAT 96; BMI 26.6
[2024-04-22 06:36] LABS: Albumin Level 4.1 g/dl (3.5-5.0); Chloride 98 mmol/L (98-107)
[2024-04-22 06:37] LABS: Potassium 4.2 mmoL/L (3.5-5.1); Sodium 135 mmol/L (136-145)
[2024-04-22 06:39] LABS: Alanine Aminotransferase 15 U/L (12-78); Anion Gap 10.2 mEq/L (5-15); Aspartate Amino Transferase 20 U/L (17-59); Blood Urea Nitrogen 15 mg/dl (9-20); Carbon Dioxide 31 mmol/L (22.0-30.0); Creatinine Clearance Estimated 106 mL/min (50-200); Estimated Glomerular Filt Rate 78 ml/min (>60); GFR (African American) 94 ML/MIN (>60)
[2024-04-22 06:40] LABS: Albumin/Globulin Ratio 1.7 (1.1-1.8); Alkaline Phosphatase 67 U/L (38-126); Bilirubin,Total 0.8 mg/dl (0.2-1.3); Calcium 9.2 mg/dl (8.4-10.2); Globulin 2.4 g/dL (1.3-3.2); Glucose 99 mg/dl (74-100); Total Protein,Serum 6.5 g/dl (6.3-8.2)
[2024-04-22 06:52] LABS: Basophils % 0.3 % (0.1-2.0); Eosinophils # 0.1 K/mm3 (0.0-0.4); Eosinophils % 0.9 % (0.1-12.0); Hemoglobin 15.6 g/dL (14.1-18.0); Lymphocytes # 1.3 K/mm3 (0.7-4.5); Lymphocytes % 12.2 % (10-50); Mean Corpuscular HGB Conc 34.6 g/dL (31.8-35.4); Mean Corpuscular Hemoglobin 29.4 pg (27.0-31.2); Mean Platelet Volume 7.4 fl (7.4-10.4); Monocytes # 0.9 K/mm3 (0.1-1.0); Monocytes % 8.1 % (1.7-9.3); Neutrophils # 8.6 K/mm3 (1.8-7.8); Neutrophils % 78.6 % (37.0-80.0); Platelet Count 209 K/mm3 (142-424); Red Cell Distribution Width 13.8 % (11.5-17.5)
[2024-04-22 07:28] LABS: Adenovirus F 40/41, stool Not Detected (NotDetected); Astrovirus Not Detected (NotDetected); Campylobacter Not Detected (NotDetected); Cryptosporidium Not Detected (NotDetected); Cyclospora Cayetanesis Not Detected (NotDetected); Entamoeba histolytica Not Detected (NotDetected); Enteroaggregative E coli Not Detected (NotDetected); Enteropathogenic E coli Not Detected (NotDetected); Enterotoxigenic E coli Not Detected (NotDetected); Giardia lamblia Not Detected (NotDetected); Norovirus Not Detected (NotDetected); Plesimonas Shigalloides, PCR Not Detected (NotDetected); Rotavirus A Not Detected (NotDetected); Salmonella, PCR Not Detected (NotDetected); Sapovirus Not Detected (NotDetected); Shiga-like toxin E coli Not Detected (NotDetected); Shigella Enterovasive E coli Not Detected (NotDetected); Vibrio Cholerae Not Detected (NotDetected); Vibrio, PCR Not Detected (NotDetected); Yersinia Entercolitica, PCR Not Detected (NotDetected)
[2024-04-22 07:57] VITALS: BP 123/64; PULSE 84; RESP 16; TEMP 36.8; O2SAT 96
--- NOTE | 2024-04-22 08:15 | EXP.DC.SUM ---
General Admission date:: 04/20/24 Discharge date: 04/22/24 HPI HPI HPI: Mr. Donte Lopez is a 33 year old male with a medical history significant for bleeding PUD, IBS presents with 1 week onset of melena, and one day of BRBPR. He denies NSAIDS, alcohol. He states he's been having on an off dark stools for many years, but this week it's been nearly every day. Only restarted his Prilosec this week. Workup in the ED significant for Hgb 16, BUN 19. Vitals stable. Dr. Bains with GI was consulted by ED and agreed to perform EGD. Case was discussed with ED provider and decision was made to admit patient for stable GI bleed. Hospital Course Hospital Course Hospital Course: Mr. Donte Lopez is a 33 year old male with a medical history significant for bleeding PUD, IBS presents with 1 week onset of melena, and one day of BRBPR. He denies NSAIDS, alcohol. He states he's been having on an off dark stools for many years, but this week it's been nearly every day. Only restarted his Prilosec this week. Workup in the ED significant for Hgb 16, BUN 19. Vitals stable. Dr. Bains with GI was consulted by ED and agreed to perform EGD. Case was discussed with ED provider and decision was made to admit patient for stable GI bleed. Status post colonoscopy stable for discharge. Showed pancolitis. Concern for infectious versus inflammatory bowel disease. Stool culture returned positive for C. difficile. Transitioned to oral vancomycin for 10 days. Will have follow-up with GI for further management and anticipate repeat scope to evaluate for resolution of colitis. Fecal studies pending for inflammatory bowel disease at discharge. Stable to discharge home. Problems addressed as follows: # C. difficile colitis # Pancolitis # Melena # Bright red blood per rectum #H/o PUD - EGD 04/20/24 showed Small superficial antral gastric ulceration without active bleed, moderate reactive gastropathy of antrum, Small distal esophageal squamous tag. Colonoscopy performed 04/21. Found to have pancolitis on imaging. GI assisted with care during admission. Concern for C. difficile, stool panel positive for C. difficile. Patient was transitioned to oral vancomycin to complete 10 days of 125 mg 4 times a day. Stool calprotectin and lactoferrin pending at discharge. Concern for underlying component of IBD as well. Further management as an outpatient with GI. Of note, patient's hemoglobin levels remain normal at 15-16. Kidney function stable. No electrolyte disturbances. Overall doing well. Stable to discharge home with further management as an outpatient. Tolerating advancement of diet Exam Data for Last 24 hours Vital signs and Labs for Last 24 Hours: Temp Pulse Resp BP Pulse Ox O2 Del Method O2 Flow Rate 98.2 F 84 16 123/64 96 Room Air 4 04/22/24 07:57 04/22/24 07:57 04/22/24 07:57 04/22/24 07:57 04/22/24 07:57 04/22/24 07:57 04/21/24 10:38 Laboratory Results - last 24 hr 04/21/24 11:23: ESR 4, C-Reactive Protein 17.3 H 04/22/24 05:35: WBC 11.0 H, RBC 5.30, Hgb 15.6, Hct 45.0, MCV 85.0, MCH 29.4, MCHC 34.6, RDW 13.8, Plt Count 209, MPV 7.4, Neut % (Auto) 78.6, Lymph % (Auto) 12.2, [place] % (Auto) 8.1, Eos % (Auto) 0.9, Baso % (Auto) 0.3, Neut # (Auto) 8.6 H, Lymph # (Auto) 1.3, [place] # (Auto) 0.9, Eos # (Auto) 0.1, Baso # (Auto) 0.0, Sodium 135 L, Potassium 4.2, Chloride 98, Carbon Dioxide 31 H, Anion Gap 10.2, BUN 15, Creatinine 1.10, Estimated Creat Clear 106, Estimated GFR 78, Est GFR ( Amer) 94, Glucose 99, Calcium 9.2, Total Bilirubin 0.8, AST 20, ALT 15, Alkaline Phosphatase 67, Total Protein 6.5, Albumin 4.1, Globulin 2.4, Albumin/Globulin Ratio 1.7 I & O for Last 24 hours: Intake & Output 04/19/24 04/20/24 04/21/24 04/22/24 23:59 23:59 23:59 23:59 Intake Total 1100 / 1100 900 / 1260 360 / 360 Output Total 0 / 0 Balance 1100 / 1100 899 / 1259 359 / 359 Weight 75.977 kg 77.428 kg 76.929 kg Constitutional Constitutional: no acute distress *Routine HEENT Exam Head: Present normocephalic Eye: Present EOMI and PERRL ENT: Present mucous membranes moist *Routine Neck Exam Neck: Present supple; Absent lymphadenopathy *Routine Respiratory Exam Respiratory: Present CTA bilaterally; Absent rhonchi, wheezes or crackles *Routine Cardiovascular Exam Cardiovascular: Present RRR *Routine Abdominal Exam Abdominal: Present soft and normoactive bowel sounds; Absent tenderness *Routine Rectal Exam Patient deferred: visual exam *Routine Exam Patient deferred: penile exam *Routine Extremities Exam Extremities: Absent cyanosis, clubbing or edema *Routine Skin Exam Skin: Present warm; Absent rash *Routine Neurological Exam Neurological: Present alert, oriented X3 and moving all extremities; Absent altered mental status Results Data Completed and Pending Labs on day of discharge: Labs from last 24 hours 04/22/24 04/21/24 05:35 11:23 WBC 11.0 H RBC 5.30 Hgb 15.6 Hct 45.0 MCV 85.0 MCH 29.4 MCHC 34.6 RDW 13.8 Plt Count 209 MPV 7.4 Neut % (Auto) 78.6 Lymph % (Auto) 12.2 [place] % (Auto) 8.1 Eos % (Auto) 0.9 Baso % (Auto) 0.3 Neut # (Auto) 8.6 H Lymph # (Auto) 1.3 [place] # (Auto) 0.9 Eos # (Auto) 0.1 Baso # (Auto) 0.0 ESR 4 Sodium 135 L Potassium 4.2 Chloride 98 Carbon Dioxide 31 H Anion Gap 10.2 BUN 15 Creatinine 1.10 Estimated Creat Clear 106 Estimated GFR 78 Est GFR ( Amer) 94 Glucose 99 Calcium 9.2 Total Bilirubin 0.8 AST 20 ALT 15 Alkaline Phosphatase 67 C-Reactive Protein 17.3 H Total Protein 6.5 Albumin 4.1 Globulin 2.4 Albumin/Globulin Ratio 1.7 DS: Diagnosis Discharge Diagnosis (1) C. difficile colitis: Status: Acute Code(s): A04.72 - Enterocolitis due to Clostridium difficile, not specified as recurrent (2) Pancolitis: Status: Acute Code(s): K51.00 - Ulcerative (chronic) pancolitis without complications (3) Melena: Status: Acute Code(s): K92.1 - Melena (4) Bright red blood per rectum: Status: Acute Code(s): K62.5 - Hemorrhage of anus and rectum (5) PUD (peptic ulcer disease): Status: Acute Code(s): K27.9 - Peptic ulcer, site unspecified, unspecified as acute or chronic, without hemorrhage or perforation Meds Home Medications and Allergies Home Medications ?Medication ?Instructions ?Recorded ?Confirmed ?Type omeprazole 20 mg tablet,delayed 20 mg PO DAILY 04/20/24 04/20/24 History release vancomycin 50 mg/mL oral solution 125 mg (2.5 mL) PO QID 10 days #0 04/22/24 Rx (Firvanq) mL New Prescriptions to Start Prescriptions: Allergies Allergy/AdvReac Type Severity Reaction Status Date / Time No Known Allergies Allergy Verified 03/04/23 15:41 Discharge Plan Disposition Patient Disposition: Home, Self-Care Condition: Fair Follow up Plan Follow up with: Jaguar Bains II, MD [Staff Physician] - 05/13/24 9:00 am (with Jaz Daly ) Destiny Decker APRN [Primary Care Provider] - 04/30/24 11:00 am Prescriptions/Medication Reconciliation: New vancomycin [Firvanq] 50 mg/mL Recon Soln 125 mg PO QID 10 Days Qty: 0 0RF Continued omeprazole 20 mg Tablet,Delayed Release (Dr/Ec) 20 mg PO DAILY Problem Reconciliation Problems Reviewed?: Yes Patient Discharge Instructions ACTIVITY: Continue current activity DIET: continue same diet Patient Instructions: Antibiotic-associated Colitis -- C difficile, DI for Gastrointestinal Bleeding Print Language: Mohawk Providers Primary Care Provider: Destiny Decker Admit Provider: Raymond Coats Attending Provider: Raymond Coats
[2024-04-22] MEDS: DICYCLOMINE 10MG CAPSULE 10 MG PO ×2 (08:49→12:43)
[2024-04-22] MEDS: MESALAMINE 800MG TABLET DR 1600 MG PO ×2 (08:49→12:43)
[2024-04-22 11:53] VITALS: BP 118/59; PULSE 78; RESP 16; TEMP 36.6; O2SAT 97
[2024-04-22 12:12] LABS: Clostridium Difficile A/B, PCR Detected (NotDetected)
[2024-04-22] MEDS: VANCOMYCIN HCL 50MG/ML 150ML KIT 125 MG PO (12:50)
[2024-04-23 09:14] LABS: Cytoplasmic (C-ANCA) <1:20 titer (Neg:<1:20); Perinuclear (P-ANCA) <1:20 titer (Neg:<1:20)
--- NOTE | 2024-04-23 13:31 | CARE MANAGER ---
Contacted patient related to hospital discharge. He states he is doing ok. He is taking antibiotics and is aware of follow up appointments. Denies questions or concerns. DENISHA Nicholas
[2024-04-23 21:14] LABS: Calprotectin, Fecal 4750 ug/g (0-120)
[2024-04-24 14:49] LABS: Saccharomyces cerevisiae, IgA <20.0 Units (0.0-24.9); Saccharomyces cerevisiae, IgG <20.0 Units (0.0-24.9)
== END 2024-04-22 13:00 | disposition home or self-care (01) ==
LOC: ER 09:41 → 2ND 09:47
PROVIDERS: Internal Medicine Adolescent Medicine; Internal Medicine Gastroenterology; Admitting Provider Student in an Organized Health Care Education/Training Program; Emergency Provider Student in an Organized Health Care Education/Training Program; PCP Nurse Practitioner Family; Visit Provider Student in an Organized Health Care Education/Training Program
PROC: 0DJ08ZZ Inspection of Upper Intestinal Tract, Via Natural or Artificial Opening Endoscopic (ICD-10-PCS; CPT 43235; principal; 2024-04-20 10:00)
PROC: (CPT 45380; principal; 2024-04-21 13:30)
DX: A04.72 Enterocolitis due to Clostridium difficile, not specified as recurrent (principal); R10.13 Epigastric pain; K21.9 Gastro-esophageal reflux disease without esophagitis; D13.0 Benign neoplasm of esophagus; K58.1 Irritable bowel syndrome with constipation; K25.4 Chronic or unspecified gastric ulcer with hemorrhage; M54.16 Radiculopathy, lumbar region
CPT/HCPCS: 45380; 43239; 36415; 80053; 83605; 83690; 83993; 85025; 85610; 85651; 86036; 86140; 86256; 86671; 86803; 87389; 87507; 99285; G0378; J2405; J7120

== ENCOUNTER 2024-08-13 13:18 | Outpatient (CLI) | payer BC, SELFPAY ==
[2024-08-14 08:21] LABS: Sex Hormone Binding Globulin 41.5 nmol/L (16.5-55.9)
[2024-08-18 19:08] LABS: Free Testosterone (Direct) 14.4 pg/mL (8.7-25.1); Testosterone, Total, LC/MS 673.8 ng/dL (264.0-916.0)
== END 2024-08-13 23:59 | disposition home or self-care (01) ==
LOC: LAB.DROPOF 13:19
PROVIDERS: PCP Internal Medicine; Visit Provider Internal Medicine
DX: R53.83 Other fatigue (principal)
CPT/HCPCS: 84270; 84402; 84403